=== PATIENT | male | born 1940 | race Caucasian/White ===

== ENCOUNTER 2018-06-09 10:53 | Emergency (ER) | payer OTHER, BC ==
[~2018-06-09] VITALS: Ht 182.9 cm; Wt 90.7 kg
--- NOTE | ~2018-06-09 | EKG ---
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
[2018-06-09 10:57] VITALS: BP 113/50
[2018-06-09 13:07] LABS: HEMATOCRIT 42.8 % (42.0-52.0); HEMOGLOBIN 14.3 gm/dL (14.0-18.0); MCHC 33.4 g/dL (28.0-37.0); MCV 89.9 fL (80.0-100.0); RBC 4.77 mil/uL (4.50-6.00); RDW 14.2 % (10.5-14.5); WBC 8.4 thou/uL (4.0-11.0)
[2018-06-09 13:14] LABS: CALCIUM 8.9 mg/dL (8.5-10.1); CREATININE 0.9 mg/dL (0.7-1.3); POTASSIUM 4.6 mmol/L (3.5-5.1)
[2018-06-09 13:19] LABS: ALBUMIN 3.5 g/dL (3.4-5.0); TOTAL BILIRUBIN 0.8 mg/dL (<0.1-1.0)
[2018-06-09 13:44] LABS: APTT 32.6 Seconds (24.5-32.8); INR 1.1; PROTIME 11.8 Seconds (9.3-11.4)
[2018-06-10] MEDS ORDERED: LUMIGAN2.5 M1 OPHTHALMIC ×2 (10:19)
[2018-06-10] MEDS ORDERED: ZYRTEC10 M4 PO ×2 (10:20)
[2018-06-10] MEDS ORDERED: ALLEGRA ALLERG180 MG PO ×2 (10:20)
[2018-06-10] MEDS ORDERED: MUCINEX D ER 61 EACH PO ×2 (10:21)
[2018-06-10] MEDS ORDERED: HYDROCHLOROTHIA25 M2 PO ×2 (10:22)
[2018-06-10] MEDS ORDERED: TOPROL XL25 MG PO ×4 (10:24)
[2018-06-10] MEDS ORDERED: SPIRONOLACTONE25 MG PO ×2 (10:25)
[2018-06-10] MEDS ORDERED: TIMOLOL GL0.5 %/5 M1 OPHTHALMIC ×2 (10:26)
[2018-06-10] MEDS ORDERED: COUMADIN 5 MG TA5 M1 PO ×2 (10:27)
== END 2018-06-09 13:30 | disposition home or self-care (01) ==
LOC: ER 10:53
PROVIDERS: Emergency Medicine
DX: Z01.812 Encounter for preprocedural laboratory examination (principal); D04.21 Carcinoma in situ of skin of right ear and external auricular canal; Z79.01 Long term (current) use of anticoagulants; I48.91 Unspecified atrial fibrillation

== ENCOUNTER 2018-06-10 07:04 | Day surgery (SDC) | payer OTHER, BC ==
[~2018-06-10] VITALS: Ht 182.9 cm; Wt 116.1 kg
[2018-06-10] MEDS ORDERED: LUMIGAN2.5 M1 OPHTHALMIC ×2 (10:19)
[2018-06-10] MEDS ORDERED: ALLEGRA ALLERG180 MG PO ×2 (10:20)
[2018-06-10] MEDS ORDERED: ZYRTEC10 M4 PO ×2 (10:20)
[2018-06-10] MEDS ORDERED: MUCINEX D ER 61 EACH PO ×2 (10:21)
[2018-06-10] MEDS ORDERED: HYDROCHLOROTHIA25 M2 PO ×2 (10:22)
[2018-06-10] MEDS ORDERED: TOPROL XL25 MG PO ×4 (10:24)
[2018-06-10] MEDS ORDERED: SPIRONOLACTONE25 MG PO ×2 (10:25)
[2018-06-10] MEDS ORDERED: TIMOLOL GL0.5 %/5 M1 OPHTHALMIC ×2 (10:26)
[2018-06-10] MEDS ORDERED: COUMADIN 5 MG TA5 M1 PO ×2 (10:27)
[2018-06-10 10:29] VITALS: BP 111/60
[2018-06-10 16:47] VITALS: BP 136/75
[2018-06-10 19:24] VITALS: BP 118/74
[2018-06-11 04:04] VITALS: BP 102/58
--- NOTE | 2018-06-11 04:37 | NUR ---
ASSUMED CARE AT START OF SHIFT , PT SITTING UP ON SIDE OF BED AT BEDSIDE, DRESSING AND EAR CRADLE INTACT PAIN MEDICATION GIVEN THROUGHOUT SHIFT , RESTED WELL THROUGHOUT HOURLY ROUNDS, WILL CONTINUE WITH CURRENT PLAN OF CARE.
[2018-06-11 05:54] LABS: CALCIUM 8.3 mg/dL (8.5-10.1); POTASSIUM 4.7 mmol/L (3.5-5.1)
[2018-06-11 05:58] LABS: HEMATOCRIT 38.6 % (42.0-52.0); HEMOGLOBIN 12.7 gm/dL (14.0-18.0); MCH 29.6 pg (26.0-34.0); MCHC 32.8 g/dL (28.0-37.0); MCV 90.3 fL (80.0-100.0); RBC 4.28 mil/uL (4.50-6.00); RDW 14.2 % (10.5-14.5); WBC 13.4 thou/uL (4.0-11.0)
[2018-06-11 07:49] VITALS: BP 110/58
[2018-06-11 13:02] VITALS: BP 110/58
--- NOTE | 2018-06-11 13:54 | NUR ---
ASSUMED CARE OF PT AT APPROX 0700. PT IS ALERT AND ORIENTED, MONITORED ON TELEL AND ABLE TO MAINTAIN 02 SAT >90 ON RA. DENIES PAIN AND SOA. EVEN, NON LABORED BREATHING. PT ANXIOUS FOR DC. DC WAS COMPLETED YESTERDAY BUT NO DC INSTRUCTIONS FOR EAR WOUND LEFT. PT WANTS SPECIFIC INSTRUCTIONS FROM CALLED ALL MORNING. LEFT MESSAGE WITH NURSE VOICEMAIL. RECIEVED CALL BACK AND WAS GIVEN INSTRUCTIONS. EXPLAINED ALL INSTRUCTIONS TO PT WELL PRINTED THEM IN PT DC INSTRUCTIONS. PT IS NOW SATISFIED AND STATES HE FEELS READY FOR DC. COMPLETED DC. PT HAS MET POC GOALS. LEFT WITH . HAS ALL PT BELONINGS. LEFT VIA WHEELCHAIR WITH [facility] [employer].
--- NOTE | 2018-06-11 16:37 | O ---
[facility] [place] [address] OPERATIVE REPORT Name: ADEOLA PAINTER Room #: DEP [facility]..#: [id number] Admission: 06/10/18 Attend Phys: Harrison Osorio MD Discharge: 06/11/18 Date of : 38 Report #: [id number] THIS REPORT FOR: //name// CC: [facility] physician/PCP Harrison Babcock MD DATE OF SERVICE: 06/10/2018 PREOPERATIVE DIAGNOSES: 1. Mohs defect, right pinna-scaphoid fossa. 2. Squamous cell carcinoma, right pinna. POSTOPERATIVE DIAGNOSES: 1. Mohs defect, right pinna-scaphoid fossa. 2. Squamous cell carcinoma, right pinna. OPERATION PERFORMED: 1. Fasciocutaneous flap reconstruction, right pinna. 2. [place] node biopsy, right parotid. 3. Nerve integrity monitoring x 2 hours. SURGEON: Harrison Osorio MD ANESTHESIA: General endotracheal. INDICATIONS: The patient is a 77-year-old gentleman referred by his Mohs surgeon, Dr. Babcock for reconstruction of his right pinna after excision of a squamous cell carcinoma with a through and through defect of the right scaphoid fossa, of the right pinna. He was left with a defect of about 1.5 x 3 cm through and through the pinna. The patient was also recommended sentinel lymph node biopsy. Preoperative CT scan was negative. DESCRIPTION OF PROCEDURE: The patient was admitted to the hospital, brought to Nuclear Medicine for injection in anticipation of sentinel node, lymph node biopsy. He was brought to the operating room and placed supine on the operating table with the right ear up with adequate general endotracheal anesthesia was achieved via endotracheal intubation. He was turned 180 degrees with the right ear up. The Nuclear Medicine injection had located a lymph node in the right parotid as the only suspicious node. The patient's planned incision was marked out and a partial Víctor incision on the right and injected with 1% Xylocaine with 1:100,000 epinephrine. Photographs were taken of the defect prior to beginning. The patient was then prepped and draped in a sterile fashion and IV antibiotics begun. As a separate part of the procedure, the right face was monitored with continuous intraoperative monitoring of the facial nerve. Needle [address] [address] OPERATIVE REPORT Name: ADEOLA PAINTER Room #: DEP [facility] M.R.#: [id number] Admission: 06/10/18 Attend Phys: Harrison Osorio MD Discharge: 06/11/18 Date of : 38 Report #: [id number] electrodes were placed in the orbicularis addison and orbicularis oculi muscles with ground electrodes in the soft tissue overlying the sternum and contralateral shoulder. Electrode resistance and impedance was measured and found to be acceptable. Stimulus and threshold intensity parameters were set and the patient was monitored for the entirety of the case of approximately 2 hours in order to locate and protect the facial nerve. The patient was prepped and draped in a sterile fashion. The procedure began with incision through skin and subcutaneous tissue and platysma. Skin flaps were elevated off the parotid superficial to the superficial lenny-aponeurotic system (SMAS). This was held with Gelpi forceps. Using the gamma probe, examination was made of the parotid until some uptake could be seen just anterior to the tragus running along the superficial temporal artery and vein. A 10-second count prior to excision was 85. The lymph node was identified as a very small 3-4 mm oval lymph node. Once this was identified, this was removed and delivered off this field as specimen in formalin. The 10-second count ex vivo was 45. Post-removal, the 10-second count on the bed was 0. This seemed to indicate removal of the sentinel node. The hemostasis was assured in the parotid with bipolar cautery. This parotid was then closed back on itself with interrupted 3-0 Vicryl. Skin flaps were then closed with interrupted 4-0 Vicryl deep dermal sutures, 5-0 nylon on the skin and 5-0 fast absorbing in the retrotragal incision. Attention was then turned to reconstruction of the pinna. It was elected to proceed with primary reconstruction of the pinna with fasciocutaneous flaps, both superior and inferior. The planned defect was an oval defect obliterating the scaphoid fossa. This was then extended further into the deepest part of the scaphoid fossa as a triangular removal, allowing the pinna to fold back on itself for reconstruction. Superior flaps were then created in the helical fold as well as inferior flaps in the inferior fold also with a triangular excision in order to let these fold back on the defect and avoid redundancy. The patient had a very small helical rim still remaining from his Mohs surgery. This was tenuous at best and very cyanotic. This was amputated. The flaps were then sutured in place, suturing the cartilage and deep dermal sutures with interrupted 4-0 Vicryl. This allowed the ear to fold back on to itself while relieving the defect nicely. The fasciocutaneous helical flaps were then advanced and these were incised with a #10 blade to fit precisely together. These were then closed again with deep sutures closing the cartilage and dermis with interrupted 4-0 Vicryl. A 6-0 nylon was then used to close skin, both on the ventral and dorsal surface of the pinna. Once the flaps were inset, these appeared viable and noncyanotic. The Víctor incision was then dressed with Mastisol and 1/4-inch Steri-Strips. The pinna was dressed with bacitracin ointment and adult size Campbell dressing. The patient was then returned to anesthesia, awakened without difficulty and returned to recovery in good condition. Sponge and needle counts were correct. There were no complications. Blood loss was about 50 mL. The patient will be watched overnight per his request for monitoring. Written and verbal discharge instructions and emergency precautions have been [address] [address] OPERATIVE REPORT Name: MADINAADEOLA Muñoz Room #: DEP [facility] M.R.#: [id number] Admission: 06/10/18 Attend Phys: Harrison Osorio MD Discharge: 06/11/18 Date of : 38 Report #: [id number] given to his . DISCHARGE MEDICATIONS: Include clindamycin 300 mg t.i.d. for 10 days, Phenergan suppository 25 mg 1 per rectum q. 4-6 hours p.r.n., hydrocodone/acetaminophen 7.5/325 one to two q. 4-6 hours p.r.n. He is instructed on light activity and soft diet. He is instructed on water precautions for his ear. Prior to closure, also the right ear canal was irrigated and suctioned removing dry blood in the canal. <ELECTRONICALLY SIGNED> By: Harrison Osorio MD 06/11/18 1637 [id number] [id number] Harrison Osorio MD /rosa
--- NOTE | 2018-06-15 11:06 | PATH ---
[facility] [address] [place] [address] PATHOLOGY RPT PROCEDURE Name: MELENDEZADEOLA Room #: DEP [facility] M.R.#: [id number] Admission: 06/10/18 Date of : 38 Discharge: 06/11/18 Report #: [id number] Path Case #: [id number] [facility] Accession Number: [id number] . 01 Material submitted: . PART A: RIGHT PAROTID SENTINEL LYMPH NODE PART B: RIGHT EAR REMNANTS . 01 Clinical history: . Squamous cell carcinoma of right pinna . 02 Diagnosis: A. Lymph node (1), right parotid sentinel lymph node, biopsy: - Reactive lymph node without metastatic carcinoma (0/1). . B. Ear, right ear remnants, excision: - FOCAL RESIDUAL INVASIVE SQUAMOUS CELL CARCINOMA PRESENT, HISTORY OF MOH'S DEFECT REPAIR. - Extensive ulceration present. - Inked margins (3 separate fragments) free of invasive malignancy. (IUV:catrachito; 06/12/2018) QMS/06/15/2018 . 02 Comment: AE1/AE3 immunohistochemical stain is performed on block A1 and it shows no evidence of metastatic carcinoma present. (IUV:catrachito; 06/12/2018) . 02 Electronically signed: . Nati Rice MD, Pathologist NPI- [id number] . 01 Gross description: . A. Received in formalin labeled "Adeola Melendez, right parotid sentinel lymph node," is a segment of johnson-brown soft tissue measuring 0.5 x 0.4 x 0.3 cm in greatest dimensions. The specimen is bisected and submitted entirely in cassette A1. . B. Received in formalin labeled "Adeola Melendez, right ear remnants," are three segments of pale johnson skin with attached underlying soft tissue/cartilage. The first segment is elongate and measures 2.0 x 0.8 x 0.6 cm in greatest dimensions. The epidermal surface is granular and pale johnson in appearance. The surgical margin is inked black, and the specimen is breadloafed and submitted entirely in cassettes B1 and B2. Serial sectioning reveals yellow-brown, partially cartilaginous cut surfaces. The second segment is wedged-shaped and measures 1.5 x 1.3 x 1.1 cm in greatest dimensions. The front and back [place] [address] PATHOLOGY RPT PROCEDURE Name: ADEOLA MELENDEZ Room #: DEP [facility].#: [id number] Admission: 06/10/18 Date of : 38 Discharge: 06/11/18 Report #: [id number] Path Case #: [id number] and pale johnson in appearance, with the apex ulcerative and dark brown in appearance. The surgical margin is inked black. The specimen is serially sectioned perpendicular to the apex and submitted entirely in cassettes B3 and B4. Sectioning reveals dark johnson-brown, partially cartilaginous cut surfaces. The third segment is narrow, wedged-shaped and measures 1.4 x 0.6 x 0.6 cm in greatest dimensions. The front and back epidermal surfaces are granular and pale johnson in appearance, with the apex ulcerative and dark brown in appearance. The surgical margin is inked black. The specimen is bisected perpendicular to the apex and submitted en face in cassette B5. Sectioning reveals dark johnson-brown, partially cartilaginous cut surfaces. (DAC; 06/11/2018) XDC/XDC . 02 Pathologist provided ICD-10: C44.222, L98.499 . 02 CPT . 372336, 171062, Z82198 Specimen Comment: A courtesy copy of this report has been sent to Specimen Comment: [phone]. Specimen Comment: Report sent to Performed at: [address], [place], [place] [id number] MD Padilla Abarca MD Phone: [phone] Performed at: [address] [id number] MD Nati Rice MD Phone: [phone]
== END 2018-06-11 14:18 | disposition home or self-care (01) ==
LOC: OR 07:04 → TBA 07:05 → 4W 16:34 → ENTRNSPT 06-11 14:07 → EDTRNSPTSTS 06-11 14:09 → OR 06-11 14:18
PROVIDERS: Otolaryngology Plastic Surgery within the Head & Neck
DX: H61.111 Acquired deformity of pinna, right ear (principal); C44.222 Squamous cell carcinoma of skin of right ear and external auricular canal; R59.9 Enlarged lymph nodes, unspecified; L98.499 Non-pressure chronic ulcer of skin of other sites with unspecified severity; I48.91 Unspecified atrial fibrillation; Z79.899 Other long term (current) drug therapy; Z98.890 Other specified postprocedural states; Z79.01 Long term (current) use of anticoagulants; Z85.828 Personal history of other malignant neoplasm of skin; Z98.42 Cataract extraction status, left eye; Z86.010 Personal history of colon polyps
CPT/HCPCS: 10047; 50010; 50101; 50386; 50417; 50455; 52220; 52225; 56524; 56526; 56527; 56528; 57006; 62110; 62900; 70005

== ENCOUNTER 2020-05-02 13:11 | Day surgery (SDC) | payer OTHER, BC ==
[~2020-05-02] VITALS: Ht 182.9 cm; Wt 103.4 kg
--- NOTE | ~2020-05-02 | O ---
[facility] [address] [address] OPERATIVE REPORT Name: ADEOLA PAINTER Room #: DEP [facility] M..#: [id number] Admission: 05/02/20 Attend Phys: Harrison Osorio MD Discharge: 05/02/20 Date of : 38 Report #: [id number] THIS REPORT FOR: cc: NEREYDA - No family physician/PCP FAM - No family physician/PCP Harrison Osorio MD ~ CC: [facility] physician/PCP Tang Osorio DATE OF SERVICE: 05/02/2020 SURGEON: Harrison Oosrio M.D. PREOPERATIVE DIAGNOSES: 1. Squamous cell carcinoma, left neck. 2. History of squamous cell carcinoma, right pinna with metastases to right neck, status post right partial superficial parotidectomy with facial nerve dissection and preservation, 04/30/2019. POSTOPERATIVE DIAGNOSES: 1. Squamous cell carcinoma, left neck. 2. History of squamous cell carcinoma, right pinna with metastases to right neck, status post right partial superficial parotidectomy with facial nerve dissection and preservation, 04/30/2019. OPERATION PERFORMED: 1. Local excision squamous cell carcinoma of the left neck, 2 cm x 4 cm. 2. Complex multilayer closure squamous cell incision, left neck 4 cm. INDICATIONS: The patient is an 79-year-old male well known to me with a history of multiple squamous cell carcinoma. I received a recent biopsy report from his licensed practical nurse, Dr. Barnhart dated 04/05/2020 showing a left superolateral neck. Punch biopsies positive for superficial invasive squamous cell carcinoma. Apparently, this was infected and continued to weep, but eventually improved. Today on presentation, they are still crusted over scabbing area of left superficial superolateral neck. Recommendations were made in the office for wide local excision with primary closure. The patient has a history of significant squamous cell carcinoma of the right pinna that required Mohs excision by Dr. Babcock in 05/2018. Ultimately, he developed metastatic disease, was referred and underwent a right radical neck dissection and right partial parotidectomy with facial nerve dissection and [facility] [address] [place] [address] OPERATIVE REPORT Name: PAINTERADEOLA Room #: DEP [facility] M.R.#: [id number] Admission: 05/02/20 Attend Phys: Harrison Osorio MD Discharge: 05/02/20 Date of : 38 Report #: [id number] preservation as well as nerve integrity monitoring in 03/2019. The patient has been followed by his oncologist, Dr. Weiss, and continues immunotherapy secondary to metastatic disease. This seems to have responded to chemotherapy. PET scan dated 03/17/2020 showed decrease in the FDG uptake in the mass on the right neck. In light of the above, recommendations were made for removal of this newly diagnosed squamous cell carcinoma. DESCRIPTION OF PROCEDURE: The patient was brought to the operating room, placed supine on the operating table. In pre-anesthesia unit, the lesion was identified and confirmed by his . This had a healing crust over the top of it. There were scars present on the neck, but none of those showed evidence of acute carcinoma. This was in the superior and lateral neck. This was marked with a marking pen for identification after confirmation. The patient was then brought to the operating room and placed supine on the operating table. After adequate general anesthesia was achieved via endotracheal intubation, he was turned 180 degrees with the left neck up. He was prepped with Betadine and draped in a sterile fashion. The planned incision was marked out with 5 mm margins around the gross defect from the previous biopsy site. This was elongated and a fusiform excision to allow for primary closure. Final excision measured about 2 cm x 4 cm. This was then excised with a #15 blade. The superior margin marked with a 2-0 silk suture and delivered off the field as specimen to pathology. Frozen section confirmed the central ulceration from the squamous cell carcinoma. Margins were widely free of tumor. Wide undermining was then undertaken in the subcutaneous tissue and flaps advanced. The skin was closed with interrupted 4-0 Vicryl deep dermal sutures and 5-0 running nylon on skin. Mastisol and Steri-Strips were applied followed by an Op-Site. No drain was needed. The patient will be watched until awake and stable, presuming he does well discharge to home with plans to follow up with me in 1 week. Written and verbal discharge instructions and emergency precautions were given to his . DISCHARGE MEDICATIONS: Will include Keflex 500 mg b.i.d. for 10 days, Phenergan suppository 25 mg 1 per rectum q. 4-6 hours p.r.n., hydrocodone/acetaminophen 7.5/325 one to two q. 4-6 hours p.r.n. He is instructed on light activity, soft diet and water precautions for his neck. By: 56 28 Harrison Osorio MD /nt
[~2020-05-02 13:11] MED LIST: ALL DAY ALLERGY10 M3 PO; ALLEGRA ALLERG180 MG PO; COUMADIN 5 MG TA5 M1 PO; HYDROCHLOROTH12.5 M2 PO; HYDROCHLOROTHIA25 M2 PO; JANTOVEN5 MG PO; JANTOVEN6 MG PO; LIBTAYO350 MG/7 M IV; LOPRESSOR50 MG PO; LUMIGAN2.5 M1 OPHTHALMIC; MELATONIN5 M4 PO; METOPROLOL TART25 MG PO; MUCINEX D ER 61 EACH PO; SPIRONOLACTONE25 MG PO; TIMOLOL GL0.5 %/5 M1 OPHTHALMIC; TOPROL XL25 MG PO; TRIAMCINOLONE 080 G3 TOP; ZYRTEC10 M4 PO
[2020-05-02 13:59] VITALS: BP 110/72
[2020-05-02 14:57] LABS: INR 1.1; PROTIME 11.4 Seconds (9.3-11.4)
[2020-05-02] MEDS ORDERED: KEFLEX250 MG PO (17:04)
[2020-05-02] MEDS ORDERED: NORCO 7.5-3251 EACH PO (17:04)
[2020-05-02] MEDS ORDERED: ZOFRAN ODT4 MG DISSOLVE (17:04)
[2020-05-02 17:10] VITALS: BP 110/72
== END 2020-05-02 17:54 | disposition home or self-care (01) ==
LOC: OR 13:11 → TBA 16:47 → OR 17:54
PROVIDERS: Anesthesiology; ATTEND Otolaryngology Plastic Surgery within the Head & Neck
DX: C44.42 Squamous cell carcinoma of skin of scalp and neck (principal); I48.91 Unspecified atrial fibrillation; F32.9 Major depressive disorder, single episode, unspecified; I50.9 Heart failure, unspecified; H40.9 Unspecified glaucoma; Z98.890 Other specified postprocedural states; F17.210 Nicotine dependence, cigarettes, uncomplicated; Z79.899 Other long term (current) drug therapy; Z90.49 Acquired absence of other specified parts of digestive tract; Z86.718 Personal history of other venous thrombosis and embolism; Z79.01 Long term (current) use of anticoagulants
CPT/HCPCS: 50010; 50101; 50386; 50398; 56526; 56528; 57006; 62110; 62900; 70005